=== PATIENT | female | born 1975 | race Caucasian/White ===

== ENCOUNTER 2021-08-27 00:59 | Emergency (ER) | payer OTHER ==
[2021-08-27 01:47] LABS: HEMOGLOBIN 15.2 gm/dl (12.3-15.3); RED BLOOD COUNT 4.67 M/UL (4.00-5.10); WHITE BLOOD COUNT 10.9 K/UL (4.5-11.0)
[2021-08-27 02:06] LABS: BUN/CREATININE RATIO 19 (0-10)
== END 2021-08-27 04:45 | disposition home or self-care (01) ==
LOC: ER1 00:59
PROVIDERS: Physician Assistant Medical
DX: R07.9 Chest pain, unspecified (principal); F17.210 Nicotine dependence, cigarettes, uncomplicated; Z88.5 Allergy status to narcotic agent; Z79.82 Long term (current) use of aspirin
CPT/HCPCS: 71045; 80053; 82550; 82553; 83880; 84484; 85025; 85379; 85610; 93005; 99285